=== PATIENT | female | born 1955 | race Hispanic/Latino ===

== ENCOUNTER 2018-11-14 07:11 | Outpatient (CLI) | payer OTHER | END 2018-11-14 07:12 | disposition home or self-care (01) | LOC: CARDIO 07:11 ==

== ENCOUNTER 2019-01-10 17:29 | Emergency (ER) | payer OTHER ==
[2019-01-10 18:08] VITALS: BMI 37.9
[2019-01-10 18:12] VITALS: TEMP 98.1
[2019-01-10] MEDS ORDERED: Lidocaine 5% Patch TD STA (18:19)
--- NOTE | 2019-01-10 18:30 | ED PDOC ---
Arrival/HPI - General Chief Complaint: Back Pain Time Seen by Provider: 01/10/19 17:42 Historian: Patient - History of Present Illness Narrative History of Present Illness (Text): 01/10/19 18:20 63 year old female, whose past medical history includes HTN, DM, Diverticulitis, Anxiety, Panic Disorder, presents complaining of back discomfort that began 4 days ago. Patient reports she took vicodin with slight relief. Patient reports the pain worsens with deep breaths. She denies any history of injury or trauma. Patient denies any fever, chills, chest pain, shortness of breath, nausea, vomiting, diarrhea, urinary symptoms, neck pain, headache, dizziness, or any other complaints. PMD: Dr. Kaminski Time/Duration: Other (4 days) Symptom Onset: Gradual Activities at Onset: Light Context: Home Past Medical History - Provider Review Nursing Documentation Reviewed: Yes - Infectious Disease Hx of Infectious Diseases: None - Reproductive Menopause: Yes - Cardiac Hx Hypertension: Yes - Pulmonary Hx Chronic Obstructive Pulmonary Disease (COPD): Yes - Neurological Hx Neurological Disorder: Yes - HEENT Hx HEENT Disorder: No - Renal Hx Renal Disorder: No - Endocrine/Metabolic Hx Endocrine Disorders: Yes Hx Diabetes Mellitus Type 2: Yes - Hematological/Oncological Hx Blood Disorders: No - Integumentary Hx Dermatological Disorder: No - Musculoskeletal/Rheumatological Hx Musculoskeletal Disorders: No Hx Falls: No - Gastrointestinal Hx Gastrointestinal Disorders: Yes Hx Colostomy: Yes (had colostomy reversed post diverticulitis sx) Hx Diverticulitis: Yes Hx Gall Bladder Disease: Yes (choleycystectomy) - Genitourinary/Gynecological Hx Genitourinary Disorders: No - Psychiatric Hx Psychophysiologic Disorder: Yes Hx Anxiety: Yes Hx Depression: No Hx Emotional Abuse: No Hx Panic Disorder: Yes (has many phobias) Hx Substance Use: No - Surgical History Hx Cholecystectomy: Yes - Anesthesia Hx Anesthesia: No Hx Anesthesia Reactions: No Hx Malignant Hyperthermia: No - Suicidal Assessment Feels Threatened In Home Enviroment: No Family/Social History - Physician Review Nursing Documentation Reviewed: Yes Family/Social History: No Known Family HX Smoking Status: Former Smoker Hx Alcohol Use: No (STOPPED YRS AGO) Hx Substance Use: No Allergies/Home Meds Allergies/Adverse Reactions: Allergies No Known Allergies Allergy (Verified 10/08/16 17:39) Home Medications: Home Meds Medication Instructions Recorded Confirmed Diphenoxylate HCl/Atropine 2.5 cap PO PRN PRN 06/25/15 10/07/16 [Diphenoxylate HCl-Atropine Sulfate 0.025 mg/5] Doxepin [Sinequan] 300 mg PO HS 06/25/15 10/07/16 Enalapril Maleate [Enalapril] 10 cap PO DAILY 06/25/15 10/07/16 GlipiZIDE [Glucotrol] 10 cap PO BID 06/25/15 10/07/16 Insulin Detemir [Levemir Flexpen] 30 units SUBCUT HS 06/25/15 06/25/15 Liraglutide [Victoza] 18 cap PO DAILY 06/25/15 10/07/16 Multivit,Iron,Min 5/Folic Acid 1 cap PO DAILY 06/25/15 10/07/16 [Strovite Forte] Pregabalin [Lyrica] 150 cap PO TID 06/25/15 10/07/16 Saxagliptin HCl/Metformin HCl 25 - 1,000 cap PO BID 06/25/15 10/07/16 [Kombiglyze Xr 1000 mg-2.5 mg] Review of Systems - Physician Review All systems were reviewed & negative as marked: Yes - Review of Systems Constitutional: absent: Fevers, Other (chills) Respiratory: absent: SOB Cardiovascular: absent: Chest Pain Gastrointestinal: absent: Diarrhea, Nausea, Vomiting Genitourinary Female: absent: Dysuria, Frequency, Hematuria Musculoskeletal: Back Pain. absent: Neck Pain Neurological: absent: Headache, Dizziness Physical Exam Vital Signs Reviewed: Yes Vital Signs Temp Pulse Resp BP Pulse Ox 01/10/19 17:29 98.1 F 92 H 18 132/98 H 96 Temperature: Afebrile Blood Pressure: Hypertensive Pulse: Regular Respiratory Rate: Normal Appearance: Positive for: Well-Appearing, Non-Toxic, Comfortable Pain Distress: None Mental Status: Positive for: Alert and Oriented X 3 - Systems Exam Head: Present: Atraumatic, Normocephalic Pupils: Present: PERRL Extroacular Muscles: Present: EOMI Conjunctiva: Present: Normal Mouth: Present: Moist Mucous Membranes Respiratory/Chest: Present: Clear to Auscultation, Good Air Exchange, Other (ecchymosis noted to the left breast with tenderness to palpation to the anterior chest wall). No: Respiratory Distress, Accessory Muscle Use Cardiovascular: Present: Regular Rate and Rhythm, Normal S1, S2. No: Murmurs Back: Present: Other (tenderness to the left upper scapula ) Lower Extremity: Present: Normal Inspection. No: Edema Neurological: Present: GCS=15, Speech Normal Skin: Present: Warm, Dry, Normal Color. No: Rashes Psychiatric: Present: Alert, Oriented x 3 Medical Decision Making ED Course and Treatment: 01/10/19 18:25 Impression: 63 year old female presents complaining of left upper scapula region pain that vegan 4 days ago. Plan: -- EKG -- Chest X-ray -- Lidoderm, Toradol, Valium -- Scapula x-ray -- Reassess and disposition Prior Visits: Notes and results from previous visits were reviewed. Progress Notes: - Lab Interpretations I have reviewed the lab results: Yes - RAD Interpretation Amortization Schedule Clerk: Radiologist - EKG Interpretation Interpreted by ED Physician: Yes Type: 12 lead EKG - Scribe Statement The provider has reviewed the documentation as recorded by the [employer] Daryl Price Provider Scribe Attestation: All medical record entries made by the Scribe were at my direction and personally dictated by me. I have reviewed the chart and agree that the record accurately reflects my personal performance of the history, physical exam, medical decision making, and the department course for this patient. I have also personally directed, reviewed, and agree with the discharge instructions and disposition. Disposition/Present on Arrival - Present on Arrival Any Indicators Present on Arrival: No History of DVT/PE: No History of Uncontrolled Diabetes: No Urinary Catheter: No History of Decub. Ulcer: No History Surgical Site Infection Following: None - Disposition Have Diagnosis and Disposition been Completed?: No Diagnosis: Back pain Disposition: HOME/ ROUTINE Disposition Time: 20:26 Patient Plan: Discharge Condition: STABLE Discharge Instructions (ExitCare): Upper Back Pain (DC) Print Language: SENEGALESE Additional Instructions: All medical record entries made by the Scribe were at my direction and personally dictated by me. I have reviewed the chart and agree that the record accurately reflects my personal performance of the history, physical exam, medical decision making, and the department course for this patient. I have also personally directed, reviewed, and agree with the discharge instructions and disposition. Please use ice packs every 30 minutes for pain Please take medications as prescribed Prescriptions: Azithromycin [Z-Marcel] 250 mg PO DAILY #6 tab Lidocaine 5% [Lidoderm] 1 patch TOP Q12 #5 patch Naproxen [Naprosyn] 500 mg PO BID #10 tablet Referrals: Bisi Kaminski MD [Family Provider] - Follow up with primary Forms: [employer] (Slovak)
--- NOTE | 2019-01-10 19:01 | CARD ---
APPROVED REPORT Date of service: 01/10/2019 EKG Measurement Heart [id number] <Conclusion> Normal sinus rhythm Low voltage QRS Borderline ECG
[2019-01-10 20:48] VITALS: BP 113/61; PULSE 85; RESP 15; O2SAT 96
--- NOTE | 2019-01-11 10:16 | RAD ---
Date of service: 01/10/2019 HISTORY: Shoulder pain, chest bruising. COMPARISON: No prior. FINDINGS: LUNGS: No active pulmonary disease. PLEURA: No significant pleural effusion identified, no pneumothorax apparent. CARDIOVASCULAR: No atherosclerotic calcification present Normal. OSSEOUS STRUCTURES: No significant abnormalities. VISUALIZED UPPER ABDOMEN: Normal. OTHER FINDINGS: None. IMPRESSION: No active disease.
--- NOTE | 2019-01-11 10:20 | RAD ---
Date of service: 01/10/2019 PROCEDURE: Left scapula HISTORY: scapular Pain. No history of recent/ related trauma provided. COMPARISON: None TECHNIQUE: Standard protocol for this study/examination. FINDINGS: No significant/acute osseous, articular or soft tissue abnormalities. IMPRESSION: No significant or acute findings to account for/ related to the clinical presentation.
== END 2019-01-10 20:48 | disposition home or self-care (01) ==
LOC: ED 17:29
DX: M54.9 Dorsalgia, unspecified (principal); E11.9 Type 2 diabetes mellitus without complications; I10 Essential (primary) hypertension; Z87.891 Personal history of nicotine dependence; J44.9 Chronic obstructive pulmonary disease, unspecified
CPT/HCPCS: 71045; 73010; 93005; 96372; 99284; J1885